=== PATIENT | female | born 1960 | race Caucasian/White ===

== ENCOUNTER 2021-07-16 17:58 | Outpatient (REF) | payer BC, SELFPAY ==
[2021-07-16 19:54] LABS: Anion Gap 9.1 mmol/L (3-11); BUN 25 mg/dL (7-18); C-Reactive Protein 0.06 mg/dL (0.0-0.3); CO2 27.9 mmol/L (21.0-32.0); CREATININE 0.9 mg/dL (0.55-1.02); Calcium 9.2 mg/dL (8.5-10.1); Chloride 103 mmol/L (98-107); Glucose 91 mg/dL (74-106); Magnesium 2.3 mg/dL (1.8-2.4); Potassium 4.3 mmol/L (3.5-5.1); Sodium 140 mmol/L (136-145); TSH 1.78 uIU/mL (0.36-3.74)
[2021-07-16 20:34] LABS: Calculated LDL 118 mg/dL (<100); Cholesterol 202 mg/dL (<200); HDL Cholesterol 72 mg/dL (40-60); Triglyceride 64 mg/dL (<150)
== END 2021-07-16 17:59 | disposition home or self-care (01) ==
LOC: NCHCN 17:58
PROVIDERS: Visit Provider Internal Medicine
DX: Z00.00 Encounter for general adult medical examination without abnormal findings (principal); Z86.79 Personal history of other diseases of the circulatory system
CPT/HCPCS: 80048; 80061; 83735; 84443; 86140

== ENCOUNTER 2021-12-17 14:07 | Outpatient (REF) | payer BC, SELFPAY ==
[2021-12-17 19:39] LABS: HCT 40.3 % (36.0-46.0); MCHC 34.7 % (32.0-36.0); MCV 89 fL (80-95); MPV 11.7 fL (8.0-11.0); Platelet Count 270 10^3/uL (130-400); RBC 4.51 10^6/uL (3.93-5.22); RDW 11.9 % (11.7-14.6); RDW-SD 38.8 fL; WBC 6.04 10^3/uL (4.4-10.8)
[2021-12-17 19:55] LABS: C-Reactive Protein 0.08 mg/dL (0.0-0.3)
[2021-12-17 20:09] LABS: ESR 1 mm/hr (0-30)
== END 2021-12-17 14:08 | disposition home or self-care (01) ==
LOC: NCHCN 14:07
PROVIDERS: Visit Provider Internal Medicine
DX: G43.109 Migraine with aura, not intractable, without status migrainosus (principal)
CPT/HCPCS: 85027; 85652; 86140